=== PATIENT | female | born 1975 | race Caucasian/White ===

== ENCOUNTER 2020-09-25 08:21 | Emergency (ER) | payer OTHER ==
[2020-09-25] MEDS ORDERED: Morphine 4 MG/ML Syringe IVPUSH PRN (08:29)
[2020-09-25] MEDS ORDERED: Nitroglycerin 0.4 MG Tab.SL SL PRN (08:29)
[2020-09-25] MEDS ORDERED: Sodium Chloride 0.9% 10 ML Syringe FLUSH PRN (08:29)
[2020-09-25] MEDS ORDERED: Aspirin 81 MG Tab.Chew PO ONE (08:29)
--- NOTE | 2020-09-25 08:32 | EDM.PDOC ---
ED HPI GENERAL MEDICAL PROBLEM - General Stated Complaint: POSSIBLE HEARTATTACK Time Seen by Provider: 09/25/20 08:29 Source of Information: Reports: Patient, RN Notes Reviewed History Limitations: Reports: No Limitations - History of Present Illness INITIAL COMMENTS - FREE TEXT/NARRATIVE: 44-year-old female presents emergency department day complaint of left shoulder pain, she states, and this morning around 731-hour prior to presentation no nausea she does feel short of breath she is diaphoretic. She does have strong family history Father myocardial infarction age 49. She states she does have c holesterol problems but does not use tobacco products she has never had any cardiac work-up - Related Data Allergies Allergy/AdvReac Type Severity Reaction Status Date / Time nitrofurantoin Allergy Severe Anaphylactic Verified 09/25/20 09:57 [From Macrobid] Shock amoxicillin Allergy Rash Verified 09/25/20 08:52 Home Meds: Home Meds Levothyroxine [Synthroid] 100 mcg PO ASDIRECTED 09/25/20 [History] Progesterone, Micronized [Progesterone] 200 mg PO DAILY 09/25/20 [History] Testosterone 1 applic TOP DAILY 09/25/20 [History] Past Medical History Cardiovascular History: Reports: High Cholesterol Social & Family History - Family History Cardiac: Reports: CAD (Father) - Tobacco Use Tobacco Use Status *Q: Never Tobacco User ED ROS GENERAL - Review of Systems Review Of Systems: See Below Constitutional: Reports: Diaphoresis HEENT: Reports: Eye Discharge Respiratory: Reports: Shortness of Breath Cardiovascular: Reports: Chest Pain (Left shoulder pain) GI/Abdominal: Denies: Abdominal Pain, Nausea ED EXAM, GENERAL - Physical Exam Exam: See Below Exam Limited By: No Limitations General Appearance: Alert, Mild Distress Respiratory/Chest: No Respiratory Distress, Lungs Clear, Normal Breath Sounds, No Accessory Muscle Use, Chest Non-Tender Cardiovascular: Regular Rate, Rhythm, No Murmur GI/Abdominal: Soft, Non-Tender Extremities: Normal Inspection, No Pedal Edema #1 Interpretation EKG Date: 09/25/20 Time: 08:55 Rhythm: NSR [place]: Normal P-Wave: Present QRS: Normal ST-T: Normal QT: Normal Comparison: NA - No Prior EKG Course - Vital Signs Last Recorded V/S: Last Vital Signs Temp 97.9 F 09/25/20 08:24 Pulse 60 09/25/20 10:54 Resp 15 09/25/20 10:54 BP 103/58 L 09/25/20 10:54 Pulse Ox 95 09/25/20 10:54 - Orders/Labs/Meds Orders: Active Orders 24 hr Category Date Time Status Cardiac Monitoring [RC] .As Directed Care 09/25/20 08:29 Active EKG Documentation Completion [RC] ASDIRECTED Care 09/25/20 08:30 Active Peripheral IV Care [RC] . DIRECTED Care 09/25/20 08:30 Active Morphine Med 09/25/20 08:29 Active 4 mg IVPUSH Q10M PRN Nitroglycerin [Nitrostat] Med 09/25/20 08:29 Active 0.4 mg SL Q5M PRN Sodium Chloride 0.9% [Saline Flush] Med 09/25/20 08:29 Active 10 ml FLUSH ASDIRECTED PRN Peripheral IV Insertion Adult [OM.PC] Stat Oth 09/25/20 08:29 Ordered Saline Lock Insert [OM.PC] Stat Oth 09/25/20 08:29 Ordered EKG 12 Lead [EK] Stat Ther 09/25/20 08:30 Ordered Medication Orders Morphine Sulfate (Morphine 4 Mg/Ml Syringe) 4 mg IVPUSH Q10M PRN PRN Reason: Chest Pain Stop: 09/26/20 08:30 Last Admin: 09/25/20 08:44 Dose: 4 mg Documented by: NEIDA Nitroglycerin (Nitroglycerin 0.4 Mg Tab.Sl) 0.4 mg SL Q5M PRN PRN Reason: Chest Pain Stop: 09/26/20 08:30 Last Admin: 09/25/20 08:43 Dose: 0.4 mg Documented by: NEIDA Sodium Chloride (Sodium Chloride 0.9% 10 Ml Syringe) 10 ml FLUSH ASDIRECTED PRN PRN Reason: Keep Vein Open Last Admin: 09/25/20 08:52 Dose: 10 ml Documented by: NEIDA Labs: Laboratory Tests 09/25/20 09/25/20 09/25/20 Range/Units 08:35 08:35 11:00 WBC 7.8 (4.5-11.0) K/uL RBC 4.55 (3.30-5.50) M/uL Hgb 14.5 (12.0-15.0) g/dL Hct 42.0 (36.0-48.0) % MCV 92 (80-98) fL MCH 32 H (27-31) pg MCHC 35 (32-36) % Plt Count 375 (150-400) K/uL Neut % (Auto) 50.4 (36-66) % Lymph % (Auto) 36.8 (24-44) % [place] % (Auto) 9.7 H (2-6) % Eos % (Auto) 2.7 (2-4) % Baso % (Auto) 0.4 (0-1) % Sodium 139 L (140-148) mmol/L Potassium 4.0 (3.6-5.2) mmol/L Chloride 103 (100-108) mmol/L Carbon Dioxide 25 (21-32) mmol/L Anion Gap 15.0 H (5.0-14.0) mmol/L BUN 10 (7-18) mg/dL Creatinine 0.9 (0.6-1.0) mg/dL Est Cr Clr Drug Dosing TNP Estimated GFR (MDRD) > 60 (>60) Glucose 95 (74-106) mg/dL Calcium 8.8 (8.5-10.1) mg/dL Total Bilirubin 1.6 H (0.2-1.0) mg/dL AST 25 (15-37) U/L ALT 36 (12-78) U/L Alkaline Phosphatase 60 (46-116) U/L Troponin I < 0.017 < 0.017 (0.000-0.056) ng/mL Total Protein 6.7 (6.4-8.2) g/dL Albumin 3.7 (3.4-5.0) g/dL Globulin 3.0 (2.3-3.5) g/dL Albumin/Globulin Ratio 1.2 (1.2-2.2) Lipase 99 (73-393) U/L Meds: Medications Generic Name Dose Route Start Last Admin Trade Name Freq PRN Reason Stop Dose Admin Morphine Sulfate 4 mg 09/25/20 08:29 09/25/20 08:44 Morphine 4 Mg/Ml Syringe IVPUSH 09/26/20 08:30 4 mg Q10M PRN Administration Chest Pain Nitroglycerin 0.4 mg 09/25/20 08:29 09/25/20 08:43 Nitroglycerin 0.4 Mg Tab.Sl SL 09/26/20 08:30 0.4 mg Q5M PRN Administration Chest Pain Sodium Chloride 10 ml 09/25/20 08:29 09/25/20 08:52 Sodium Chloride 0.9% 10 Ml Syringe FLUSH 10 ml ASDIRECTED PRN Administration Keep Vein Open Discontinued Medications Generic Name Dose Route Start Last Admin Trade Name Annita PRN Reason Stop Dose Admin Aspirin 324 mg 09/25/20 08:29 09/25/20 08:42 Aspirin 81 Mg Tab.Chew PO 09/25/20 08:30 324 mg ONETIME ONE Administration Diazepam 2 mg 09/25/20 09:26 09/25/20 10:00 Diazepam 2 Mg Tab PO 09/25/20 09:27 2 mg ONETIME ONE Administration Ketorolac Tromethamine 30 mg 09/25/20 10:40 09/25/20 10:46 Ketorolac 30 Mg/Ml Sdv IVPUSH 09/25/20 10:41 30 mg ONETIME ONE Administration Departure - Departure Time of Disposition: 11:43 Disposition: Home, Self-Care 01 Condition: Fair Clinical Impression: Left shoulder strain Qualifiers: Encounter type: initial encounter Qualified Code(s): S46.912A - Strain of unspecified muscle, fascia and tendon at shoulder and upper arm level, left arm, initial encounter Referrals: PCP,Unknown [Primary Care Provider] - Additional Instructions: Try the Toradol as needed for pain control, please followup with your primary care provider in 3-5 days if not better, please call return to the emergency department with worsening of symptoms. Sepsis Event Note (ED) - Focused Exam Vital Signs: Vital Signs Temp Pulse Resp BP BP Pulse Ox 09/25/20 10:54 60 15 103/58 L 95 09/25/20 10:38 61 13 111/54 L 97 09/25/20 10:30 60 21 H 104/45 L 96 09/25/20 10:09 60 10 L 112/55 L 97 09/25/20 09:57 69 11 L 160/132 H 90 L 09/25/20 09:39 62 9 L 115/52 L 98 09/25/20 09:24 70 11 L 116/60 96 09/25/20 09:09 60 12 116/37 L 96 09/25/20 08:54 76 17 125/89 97 09/25/20 08:48 87 15 115/76 97 09/25/20 08:43 133/82 09/25/20 08:40 106 H 15 115/76 95 09/25/20 08:24 97.9 F 95 11 L 133/82 98 - My Orders Last 24 Hours: My Active Orders 09/25/20 08:29 Cardiac Monitoring [RC] .As Directed Morphine 4 mg IVPUSH Q10M PRN Nitroglycerin [Nitrostat] 0.4 mg SL Q5M PRN Sodium Chloride 0.9% [Saline Flush] 10 ml FLUSH ASDIRECTED PRN Peripheral IV Insertion Adult [OM.PC] Stat Saline Lock Insert [OM.PC] Stat 09/25/20 08:30 EKG Documentation Completion [RC] ASDIRECTED Peripheral IV Care [RC] . DIRECTED EKG 12 Lead [EK] Stat - Assessment/Plan Last 24 Hours: My Active Orders 09/25/20 08:29 Cardiac Monitoring [RC] .As Directed Morphine 4 mg IVPUSH Q10M PRN Nitroglycerin [Nitrostat] 0.4 mg SL Q5M PRN Sodium Chloride 0.9% [Saline Flush] 10 ml FLUSH ASDIRECTED PRN Peripheral IV Insertion Adult [OM.PC] Stat Saline Lock Insert [OM.PC] Stat 09/25/20 08:30 EKG Documentation Completion [RC] ASDIRECTED Peripheral IV Care [RC] . DIRECTED EKG 12 Lead [EK] Stat Plan: Assessment Acuity = acute Site and laterality = left shoulder strain Etiology = overuse injury Manifestations = none Location of injury = Home Lab values = CBC, CMP, troponin negative x2 EKG demonstrates normal sinus rhythm chest x-ray shows no acute process Plan No relief with morphine had good relief with Toradol she is getting to do conservative measures for her shoulder pain follow-up primary care 3 to 5 days if not better This note was dictated using [employer] voice recognition software please call with any questions on syntax or grammar.
--- NOTE | 2020-09-25 09:05 | CR ---
CHEST: 2 views CLINICAL HISTORY:Chest pain COMPARISON:None FINDINGS: AP view is lordotic position. The heart size, pulmonary vascularity and hilar structures are normal. No infiltrate effusion or pneumothorax is seen. IMPRESSION: No acute cardiopulmonary process.
[2020-09-25] MEDS ORDERED: Diazepam 2 MG Tab PO ONE (09:26)
[2020-09-25] MEDS ORDERED: Ketorolac 30 MG/ML SDV IVPUSH ONE (10:40)
== END 2020-09-25 12:03 | disposition home or self-care (01) ==
LOC: JP.ED 08:21
DX: S46.912A Strain of unspecified muscle, fascia and tendon at shoulder and upper arm level, left arm, initial encounter (principal); Z88.0 Allergy status to penicillin; Z88.1 Allergy status to other antibiotic agents; X58.XXXA Exposure to other specified factors, initial encounter
CPT/HCPCS: 36415; 71046; 80053; 83690; 84484; 85025; 93005; 96374; 96375; 99285; A9270; J1885; J2270

== ENCOUNTER 2022-10-11 21:28 | Emergency (ER) | payer OTHER | END 2022-10-12 00:19 | disposition home or self-care (01) | LOC: JP.ED 21:28 | DX: S86.001A Unspecified injury of right Achilles tendon, initial encounter (principal); E03.9 Hypothyroidism, unspecified; Z88.0 Allergy status to penicillin; Z88.1 Allergy status to other antibiotic agents; Z88.8 Allergy status to other drugs, medicaments and biological substances; Z86.16 Personal history of COVID-19; Z79.899 Other long term (current) drug therapy | CPT/HCPCS: 73590-26-RT; 73590-RT; 73610-26-RT; 73610-RT; 99283 ==